=== PATIENT | female | born 1970 | race Two or more races ===

== ENCOUNTER 2016-11-10 09:33 | Emergency (ER) | payer MEDICAID, OTHER ==
[~2016-11-10] VITALS: Ht 152.4 cm; Wt 83.9 kg
[2016-11-10 09:39] VITALS: BP 133/86
[2016-11-10] MEDS ORDERED: DIABETIC MEDICATION (09:45)
--- NOTE | 2016-11-10 09:48 | NUR ---
Patient ambulated to bed 2 with family. RN evaluating patient at bedside.
--- NOTE | 2016-11-10 10:07 | NUR ---
PATIENT PRESENTS TO ED WITH RIGHT 5TH DIGIT PAIN S/P HIT AGAINST TABLE WHILD AMBULATING . PT STATES HAS PAIN WHILE WALKING . DENIES N/V/D; SKIN IS PINK/WARM/DRY; AAOX4 WITH EVEN AND STEADY GAIT; LUNGS CLEAR BL; HR EVEN AND REGULAR; PT DENIES ANY FEVER, CP, SOB, OR COUGH AT THIS TIME; PATIENT STATES PAIN OF 6/10 AT THIS TIME; VSS; PATIENT POSITIONED FOR COMFORT; HOB ELEVATED; BEDRAILS UP X2; BED DOWN. ER MD MADE AWARE OF PT STATUS.
[2016-11-10] MEDS ORDERED: IBUPROFEN 600 MG TAB PO ONE (10:10)
--- NOTE | 2016-11-10 10:43 | NUR ---
X-Ray at bedside.
[2016-11-10 11:18] VITALS: BP 147/89
== END 2016-11-10 11:17 | disposition home or self-care (01) ==
LOC: MED 09:33
DX: S92.531A Displaced fracture of distal phalanx of right lesser toe(s), initial encounter for closed fracture (principal); E11.9 Type 2 diabetes mellitus without complications; W22.8XXA Striking against or struck by other objects, initial encounter; Y93.89 Activity, other specified; Y92.89 Other specified places as the place of occurrence of the external cause; Y99.8 Other external cause status
CPT/HCPCS: 73630; 82948; 99284; Q0092